=== PATIENT | female | born 1980 | race Caucasian/White ===

== ENCOUNTER 2016-12-13 10:06 | Emergency (ER) | payer OTHER ==
[2016-12-13 10:07] VITALS: BMI 24.0
[2016-12-13] MEDS ORDERED: Naproxen 550 mg Tab PO STA (10:24)
[2016-12-13] MEDS ORDERED: Lidocaine/Epi 1% 1:100000 20 ML IJ ONE ×2 (10:24→10:45)
[2016-12-13] MEDS ORDERED: TDAP Vaccine 0.5 mL Syr IM ONE (10:24)
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
--- NOTE | 2016-12-13 11:42 | RAD ---
PROCEDURE: Right Foot Radiographs. HISTORY: trauma COMPARISON: None. FINDINGS: BONES: Current study reveals the diagonal/oblique minimally displaced fractures traversing the distal 1/2 of the right 2nd metatarsal. There appears to be mild surrounding soft tissue swelling Note also made of a somewhat irregular lucency traversing the base of the distal phalanx great toe. This could represent trabecular artifact however the possibility of a nondisplaced fracture dislocation at excluded. JOINTS: Normal. SOFT TISSUES: As above. No radiopaque foreign bodies. OTHER FINDINGS: None. IMPRESSION: Minimally diagonal/oblique fracture traversing the distal 1/2 of the right 2nd metatarsal. Surrounding soft tissue swelling Note also made of a somewhat irregular lucency traversing the base of the distal phalanx great toe. This could represent trabecular artifact however the possibility of a nondisplaced fracture dislocation at excluded.
[2016-12-13 11:47] VITALS: TEMP 98.2
[2016-12-13 13:30] VITALS: BP 114/72; PULSE 82; RESP 16; O2SAT 99
== END 2016-12-13 13:15 | disposition home or self-care (01) ==
LOC: ED 10:06
DX: S81.012A Laceration without foreign body, left knee, initial encounter (principal); S92.321A Displaced fracture of second metatarsal bone, right foot, initial encounter for closed fracture; S50.311A Abrasion of right elbow, initial encounter; S30.810A Abrasion of lower back and pelvis, initial encounter; V29.9XXA Motorcycle rider (driver) (passenger) injured in unspecified traffic accident, initial encounter; Z23 Encounter for immunization

== ENCOUNTER 2016-12-27 09:33 | Emergency (ER) | payer OTHER ==
[2016-12-27 09:33] VITALS: BMI 24.0
[2016-12-27 09:58] VITALS: BP 119/83; PULSE 98; RESP 16; TEMP 98.6; O2SAT 98
--- NOTE | 2016-12-27 11:04 | ED PDOC ---
Arrival/HPI - General Chief Complaint: Suture/Staple Removal Time Seen by Provider: 12/27/16 10:33 Historian: Patient - History of Present Illness Narrative History of Present Illness (Text): 12/27/16 10:33 This 36 yo female presents to this ED for sutures removal left anterior knee. Patient had a laceration repaired x 14 days. Denies new complains. Time/Duration: Other (2 weeks) Context: Home Past Medical History - Provider Review Nursing Documentation Reviewed: Yes - Infectious Disease Hx of Infectious Diseases: None - Reproductive Menopause: No - Pulmonary Hx Asthma: Yes - Psychiatric Hx Depression: No Hx Emotional Abuse: No Hx Physical Abuse: No Hx Substance Use: No - Surgical History Hx Appendectomy: Yes - Anesthesia Hx Anesthesia: Yes Hx Anesthesia Reactions: No Hx Malignant Hyperthermia: No - Suicidal Assessment Feels Threatened In Home Enviroment: No Family/Social History - Physician Review Nursing Documentation Reviewed: Yes Family/Social History: No Known Family HX Smoking Status: Never Smoked Hx Alcohol Use: Yes Hx Substance Use: No Allergies/Home Meds Allergies/Adverse Reactions: Allergies No Known Allergies Allergy (Verified 12/13/16 10:12) Home Medications: Home Meds Medication Instructions Recorded Confirmed Control 0 mg PO DAILY 02/24/16 12/13/16 Review of Systems - Review of Systems Constitutional: Normal. absent: Fatigue, Weight Change, Fevers Eyes: Normal ENT: Normal Respiratory: Normal Cardiovascular: Normal Gastrointestinal: Normal Genitourinary Female: Normal Musculoskeletal: Other (See HPI) Skin: Normal Neurological: Normal Endocrine: Normal Hemo/Lymphatic: Normal Psychiatric: Normal Physical Exam Vital Signs Temp Pulse Resp BP Pulse Ox 12/27/16 09:54 98.6 F 98 H 16 119/83 98 Temperature: Afebrile Blood Pressure: Normal Pulse: Regular Respiratory Rate: Normal Appearance: Positive for: Well-Appearing, Non-Toxic, Comfortable Pain Distress: None Mental Status: Positive for: Alert and Oriented X 3 - Systems Exam Head: Present: Atraumatic, Normocephalic Pupils: Present: PERRL Extroacular Muscles: Present: EOMI Conjunctiva: Present: Normal Mouth: Present: Moist Mucous Membranes Neck: Present: Normal Range of Motion Back: Present: Normal Inspection Upper Extremity: Present: Normal Inspection. No: Cyanosis, Edema Lower Extremity: Present: NORMAL PULSES, Normal ROM, Neurovascularly Intact, Capillary Refill < 2 s, Other ((+) healing wound left anterior knee with [address] No: Edema, CALF TENDERNESS, Josesito's Sign, Tenderness, Swelling, Erythema, Deformity, Temperature Abnormalties Neurological: Present: GCS=15, CN II-XII Intact, Speech Normal Skin: Present: Warm, Dry, Normal Color. No: Rashes Psychiatric: Present: Alert, Oriented x 3, Normal Insight, Normal Concentration Medical Decision Making ED Course and Treatment: 12/27/16 11:08 Re-evaluation. Patient feels better. Discussed results and plan with patient who expresses understanding. All questions answered and there is agreement with the plan to discharge home with instructions. Patient stable for discharge. Return if symptoms persist or worsen. Previous visit chart was reviewed as well of x-rays. Patient is requesting a referral for [facility]. Re-evaluation Time: 11:08 Reassessment Condition: Re-examined, Improved - Procedure PROCEDURE NOTE (Text): 12/27/16 11:09 PROCEDURE: SUTURE REMOVAL Performed by the emergency provider Location: left anterior knee Length: 2 cm Distal CMS: Normal. No deficits. Neurovascularly intact. Preparation: The wound was cleaned with NS and [place]. The area was prepped and draped in the usual sterile fashion. Procedure: In total, 3 sutures were removed. Post-Procedure: Good closure and hemostasis. The patient tolerated the procedure well and there were no complications. CSM remains intact.~ Disposition/Present on Arrival - Present on Arrival Any Indicators Present on Arrival: No History of DVT/PE: No History of Uncontrolled Diabetes: No Urinary Catheter: No History of Decub. Ulcer: No History Surgical Site Infection Following: None - Disposition Have Diagnosis and Disposition been Completed?: Yes Diagnosis: Encounter for wound re-check, Encounter for removal of sutures Disposition: HOME/ ROUTINE Disposition Time: 11:15 Patient Plan: Discharge Condition: GOOD Discharge Instructions (ExitCare): Stitches Removal (ED) Additional Instructions: Call [facility] for follow up visit in 1-2 days. Clean wound with soap and water daily. Do not use Peroxide. Return to emergency if symptoms worsen. Call [facility] number to help you get a Podiatry visit. Referrals: [facility] [place] [Outside] - Follow up with primary [facility] [Outside] - Follow up with primary Forms: [facility] Visits Discharge (Italian)
== END 2016-12-27 11:25 | disposition home or self-care (01) ==
LOC: ED 09:33
DX: Z48.02 Encounter for removal of sutures (principal); Z51.89 Encounter for other specified aftercare